=== PATIENT | male | born 1990 | race Caucasian/White ===

== ENCOUNTER → 2018-08-03 | Outpatient (CLI) | payer SELFPAY ==
[~2018-08-03] MED LIST: ANAPROX DS550 MG PO; ROBAXIN500 M1 PO
== END | disposition home or self-care (01) ==
LOC: RESCLI 11:16
DX: S69.90XA Unspecified injury of unspecified wrist, hand and finger(s), initial encounter (principal); X58.XXXA Exposure to other specified factors, initial encounter; Y93.89 Activity, other specified; Y92.89 Other specified places as the place of occurrence of the external cause; Y99.8 Other external cause status